=== PATIENT | male | born 1965 | race Caucasian/White ===

== ENCOUNTER → 2019-07-07 14:04 | Outpatient (CLI) | payer OTHER, SELFPAY ==
--- NOTE | ~2019-07-07 | MR_ITS ---
EXAMINATION: MR lumbar spine wo/w con EXAM DATE: 07/07/2019 16:21 INDICATION: Radiculopathy, lumbar region. Sacroiliitis. Low back pain. TECHNIQUE: Multi-sequential, multiplanar MR images of the lumbar spine were obtained without contrast . Sagittal T1, T2, T2 fat saturation images. Axial T2 weighted images. Axial T1 weighted sequence. Patient was then injected with 17 mL Multihance intravenous contrast and reimaged. Postcontrast axi al and sagittal T1-weighted fat saturation sequences were obtained. There are no prior studies for co mparison. FINDINGS: There is enhancement surrounding both facet joints at the L4-5 level, more extensive on the right side, which also extends into the right neural foramen. Inflammation could potentially be irri tating the exiting right L4 nerve root in the lateral recess, where there is also moderate to severe stenosis. Otherwise, no areas of abnormal enhancement. There are no suspicious marrow signal abnormal ities. The vertebral bodies are aligned in the AP dimension. There is mild to moderate disc disease L 4-5 and L5-S1. The conus medullaris terminates at the L1/2 level and has normal signal intensity and morphology. Paraspinal soft tissue is unremarkable. Level by level evaluation: T12-L1: Disc does not extend beyond the endplate margin. Facet arthropathy: Mild. Neural foraminal stenosis: No stenosis. Central canal stenosis: No stenosis. L1-L2: There is a mild diffuse disc bulge. Facet arthropathy: Mild. Neural foraminal stenosis: No stenosis. Central canal stenosis: No stenosis. L2-L3: There is a mild to moderate diffuse disc bulge. Facet arthropathy: Mild to moderate. Neural foraminal stenosis: Mild bilateral. Central canal stenosis: Mild. L3-L4: There is a mild diffuse disc bulge. Facet arthropathy: Mild to moderate bilateral. Neural foraminal stenosis: Mild bilateral. Central canal stenosis: Mild. L4-L5: There is a large diffuse disc bulge. Facet arthropathy: Moderate to severe . Ligamentum flavum enlargement. Neural foraminal stenosis: Moderate to severe bilateral. Central canal stenosis: Moderate. L5-S1: There is a mild to moderate diffuse disc bulge. Facet arthropathy: Mild/moderate left. Neural foraminal stenosis: Mild to moderate right. Central canal stenosis: Mild. IMPRESSION: 1. L4-5 disc bulge, moderate to severe neural foraminal stenosis, facet arthropathy with and inflamm ation extending into the right L4 neural foramina. 2. Lesser spondylosis other levels. Reviewed, dictated and finalized at location B. 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 L4-5 disc bulge, moderate to severe neural foraminal stenosis, facet arthro mercedes with and inflammation extending into the right L4 neural foramina. 2. Lesser spondylosis other levels.
[2019-07-07 15:27] LABS: Blood Urea Nitrogen 12 mg/dL (8-26); Estimated Glomerular Filt Rate > 60
== END ==
PROVIDERS: PCP Internal Medicine; Visit Provider Nurse Practitioner Adult Health
DX: M54.16 Radiculopathy, lumbar region (principal); M46.1 Sacroiliitis, not elsewhere classified; M96.1 Postlaminectomy syndrome, not elsewhere classified; M51.26 Other intervertebral disc displacement, lumbar region
CPT/HCPCS: 72158; A9577

== ENCOUNTER → 2019-12-15 14:53 | Outpatient (CLI) | payer OTHER, SELFPAY ==
--- NOTE | ~2019-12-15 | CT_ITS ---
EXAMINATION: CT lumbar spine wo con EXAM DATE: 12/15/2019 15:26 INDICATION: Bilateral leg weakness. History of laminectomies. TECHNIQUE: Spiral CT of the lumbar spine was performed without contrast. Axial, coronal and sagittal images were reviewed. The dose-length product (DLP) for this examination was 634.27 mGy-cm. The e xposure was tailored according to patient size (auto mA exposure control), and iterative reconstructi on (ASIR) was used as additional dose reduction technique. Correlation is made to lumbar spine MRI ex amination 07/07/2019. FINDINGS: The vertebral bodies are aligned in the AP dimension. There is mild to moderate disc diseas e L4-5 and L5-S1, mild disc disease at the lumbar levels above. The vertebral body heights are mainta ined. No spondylolysis. Mild bilateral sacroiliac osteoarthritis. There is a single sclerotic focus in the left ischium measuring 1.0 cm, could be bone island but diff icult to exclude osteoblastic disease. No iliac lymphadenopathy. Mild sigmoid diverticulosis. Level by level evaluation: T12-L1: Disc does not extend beyond the endplate margin. Facet arthropathy: None. Neural foraminal stenosis: No stenosis. Central canal stenosis: No stenosis. L1-L2: Disc does not extend beyond the endplate margin. Facet arthropathy: None. Neural foraminal stenosis: No stenosis. Central canal stenosis: No stenosis. L2-L3: There is a mild diffuse disc bulge. Facet arthropathy: Mild. Neural foraminal stenosis: Mild bilateral. Central canal stenosis: Mild. L3-L4: There is a mild to moderate diffuse disc bulge. Facet arthropathy: Mild. Neural foraminal stenosis: Mild bilateral. Central canal stenosis: Mild to moderate. L4-L5: There is a moderate diffuse disc bulge. Facet arthropathy: Moderate. Neural foraminal stenosis: Moderate bilateral. Central canal stenosis: Moderate. L5-S1: There is a mild diffuse disc bulge. Facet arthropathy: Mild. Neural foraminal stenosis: Mild bilateral. Central canal stenosis: Mild. IMPRESSION: 1. Solitary left ischial sclerotic focus, most likely bone island. Consider checking PSA. 2. L4-5 moderate spondylosis. 3. Lesser spondylosis at other levels. Reviewed, dictated and finalized at location A. IMPRESSION: 1. Solitary left ischial sclerotic focus, most likely bone island. Consider ch ecking PSA. 2. L4-5 moderate spondylosis. 3. Lesser spondylosis at other levels.
--- NOTE | ~2019-12-15 | MR_ITS ---
EXAMINATION: MR cervical spine wo con EXAM DATE: 12/15/2019 16:09 INDICATION: Cervical radiculopathy. TECHNIQUE: Multi-sequential, multiplanar MR images of the cervical spine were obtained without contra st. Axial T2, axial T2 MERGE sequence. Sagittal T1, T2, T2 fat saturation images also obtained. Com parison is made to prior examination from 2003. FINDINGS: There is interbody fusion at C5-6, anterior plate at C6-7 with moderate disc disease at th is level. Mild disc disease at C4-5. The vertebral bodies are aligned in the AP dimension. There are no suspicious marrow signal abnormalities. The spinal cord signal intensity and intrinsic morphology is normal. Cervicomedullary junction is normal in appearance. Level by level evaluation: C2-C3: Disc does not extend beyond the endplate margin. Uncovertebral joint arthropathy: Mild bilateral. Facet joint arthropathy: Mild. Neural foraminal stenosis: No stenosis. Central canal stenosis: No stenosis. C3-C4: Disc does not extend beyond the endplate margin. Uncovertebral joint arthropathy: Mild bilateral. Facet joint arthropathy: Mild. Neural foraminal stenosis: No stenosis. Central canal stenosis: No stenosis. C4-C5: There is a mild diffuse disc bulge. Uncovertebral joint arthropathy: Mild to moderate right, mild left. Facet joint arthropathy: Mild to moderate bilateral. Neural foraminal stenosis: Mild mild to moderate right, mild left. Central canal stenosis: Minimal. C5-C6: This level is fused. Uncovertebral joint arthropathy: None. Facet joint arthropathy: Partially fused. Neural foraminal stenosis: No stenosis. Central canal stenosis: No stenosis. C6-C7: Disc does not extend beyond the endplate margin. Uncovertebral joint arthropathy: Mild left. Facet joint arthropathy: Mild. Neural foraminal stenosis: No stenosis. Central canal stenosis: No stenosis. C7-T1: Disc does not extend beyond the endplate margin. Uncovertebral joint arthropathy: Mild bilateral. Facet joint arthropathy: Mild bilateral. Neural foraminal stenosis: No stenosis. Central canal stenosis: No stenosis. IMPRESSION: 1. Lower cervical fusion. 2. Mild spondylosis. Reviewed, dictated and finalized at location A.
== END ==
PROVIDERS: Visit Provider Neurological Surgery
DX: M54.2 Cervicalgia (principal); M54.16 Radiculopathy, lumbar region; Z98.1 Arthrodesis status; M47.22 Other spondylosis with radiculopathy, cervical region
CPT/HCPCS: 72131; 72141

== ENCOUNTER 2021-04-05 00:32 | Day surgery (SDC) | payer OTHER, SELFPAY ==
[2021-03-14 12:28] VITALS: BMI 26.4
--- NOTE | 2021-03-24 15:28 | PC.NURSE ---
SPOKE WITH PATIENT REGARDING NEW TIMES AND DATE, NO CHANGES SINCE PREVIOUS INTERVIEW 03/14/2021
[2021-04-05 10:01] VITALS: BP 137/94; PULSE 85; RESP 18; TEMP 36.2; O2SAT 100
[2021-04-05] MEDS: LACTATED RINGERS 1,000 ML 150 ML IV CONT (10:13)
--- NOTE | 2021-04-05 10:16 | WPDANESEPPF ---
Anes - Initial Pre Proc Eval Procedure: Operation Date: 04/05/21 11:45 Proposed Procedures p Screening Colonoscopy - Shay Decker MD Date/Time: 04/05/21 10:16 Surgeon: Shay Decker MD Pre Op Diagnosis: hx of colon polyps, neoplasm screening Patient Data Age: 55 Gender: M Height: 1.8 m Weight: 83.3 kg Last Vital Signs Temp 36.2 C L 04/05/21 10:01 Pulse 85 04/05/21 10:01 Resp 18 04/05/21 10:01 BP 137/94 H 04/05/21 10:01 Pulse Ox 100 04/05/21 10:01 Allergies Allergy/AdvReac Type Severity Reaction Status Date / Time No Known Allergies Allergy Verified 04/05/21 09:55 Home Medications Medication Instructions Recorded Confirmed Type ibuprofen 600 mg PO Q6H PRN 03/14/21 04/05/21 History Patient hx anesthesia problems: none Family hx anesthesia problems: none Results Review: All pre-operative results and documents have been reviewed as part of the pre-operative evaluation. [facility]LY [facility] Past Medical History Medical History (Updated 04/05/21 @ 10:20 by Rubén Macias MD) Chronic back pain Surgical History Surgical History (Updated 04/05/21 @ 10:20 by Rubén Macias MD) H/O cervical spine surgery Social History Social History Smoking status: Former smoker Tobacco type: cigarettes Alcohol intake: current Drinks per week: 5 Spiritual care concerns: No Anes - Eval Final PreProcedure Day of Procedure 04/05/21 10:16 Patient weight: normal Heart: regular rate and rhythm Lungs: clear to auscultation Airway: Mallampati scale class II Neurological: alert and oriented Last oral intake: >/= 8 hours ASA classification: II Emergent: no Anesthetic plan: proceed Anesthesia type and monitoring: general GIVS and standard monitoring Results Review: All pre-operative results and documents have been reviewed as part of the pre-operative evaluation. Informed Consent: The patient's anesthetic plan and its attendant risks and benefits were discussed with the patient/family/POA. Questions were solicited and answers provided to the satisfaction of the patient/family/POA.
--- NOTE | 2021-04-05 11:15 | PM.HPGS ---
History of Present Illness History of Present Illness Consent: Risks, benefits, and alternatives have been discussed and questions answered. Patient agrees to proceed with procedure. Chief complaint: hx of colon polyps, neoplasm screening Narrative: Rubén Napoles is a 55 year old male with colon polyp about 7 years ago. Review of Systems Constitutional: Constitutional: Denies headache(s) and Denies weakness Eyes: Eyes: Denies blurry vision ENT: Reports Normal hearing present, Denies headache(s) and Denies neck pain Cardiovascular: Cardiovascular: Denies chest pain and Denies dyspnea Respiratory: Respiratory: Denies dyspnea Gastrointestinal: Gastrointestinal: Reports no additional gastrointestinal complaints Genitourinary: Genitourinary: Denies dysuria Musculoskeletal: Musculoskeletal: Denies neck pain Integumentary/Breasts: Skin/Breast: Denies dry skin Neurologic: Reports Normal hearing present, Denies headache(s) and Denies weakness Psychiatric: Psychiatric: Denies anxiety Endocrine: Endocrine: Denies change in body appearance Hematologic/Lymphatic: Hematologic/Lymphatic: Denies easy bleeding Allergic/Immunologic: Allergic/Immunologic: Denies urticaria PMFSH Past Medical History Medical History (Updated 04/05/21 @ 11:15 by Shay Decker MD) Chronic back pain Colon polyp Surgical History Surgical History (Updated 04/05/21 @ 10:20 by Rubén Macias MD) H/O cervical spine surgery Social History Social History Smoking status: Former smoker Tobacco type: cigarettes Alcohol intake: current Drinks per week: 5 Spiritual care concerns: No Meds Home Medications and Allergies Home Medications Medication Instructions Recorded Confirmed Type ibuprofen 600 mg PO Q6H PRN 03/14/21 04/05/21 History Allergies Allergy/AdvReac Type Severity Reaction Status Date / Time No Known Allergies Allergy Verified 04/05/21 09:55 Vital Signs Vital Signs - 24 hr 04/05/21 10:01 Temperature 97.2 F L Pulse Rate 85 Respiratory Rate 18 Blood Pressure 137/94 H Pulse Oximetry 100 Exam Const: General: comfortable and no acute distress HENMT: General nose exam: Normal nares present Eyes: General: appearance normal, both eyes and all related structures Neck: Neck: no JVD Resp: Auscultation: clear to auscultation bilaterally Cardio: Rate: regular rate Rhythm: regular rhythm GI: Inspection: non-distended GI Palp: Yes Soft to palpation Skin: General skin exam: normal color Neuro: General: gait normal Speech: normal speech Extrem: General: normal to inspection Psych: Mental Status: mental status grossly normal Assessment and Plan Assessment and plan (1) Colon polyp: Code(s): K63.5 - Polyp of colon Status: Acute Assessment and Plan: colonoscopy
[2021-04-05 11:40] VITALS: BP 136/102; PULSE 80; RESP 20; O2SAT 96
--- NOTE | 2021-04-05 11:40 | SUR.OPER ---
sigmoid colon polyp not retrieved. Dr. Orozco notified.
[2021-04-05 11:50] VITALS: BP 141/97; PULSE 79; RESP 20; O2SAT 96
[2021-04-05 12:00] VITALS: BP 135/100; PULSE 75; RESP 21; O2SAT 96
== END 2021-04-05 12:19 | disposition home or self-care (01) ==
PROVIDERS: PCP Internal Medicine; Visit Provider Internal Medicine Gastroenterology
PROC: 0DJD8ZZ Inspection of Lower Intestinal Tract, Via Natural or Artificial Opening Endoscopic (ICD-10-PCS; CPT 45378; principal; 2021-04-05 11:45)
DX: Z12.11 Encounter for screening for malignant neoplasm of colon (principal); K57.30 Diverticulosis of large intestine without perforation or abscess without bleeding; K63.5 Polyp of colon; K64.8 Other hemorrhoids; Z87.891 Personal history of nicotine dependence
CPT/HCPCS: 45385; 88305; J2704; J7120

== ENCOUNTER 2022-03-14 13:26 | Outpatient (CLI) | payer OTHER, SELFPAY ==
--- NOTE | ~2022-03-14 | MR_ITS ---
EXAMINATION: MR lumbar spine wo/w con DATE: 03/14/2022 14:45 INDICATION: Left lower extremity pain and numbness and foot drop. TECHNIQUE: Magnetic resonance imaging (MRI) of the lumbar spine was performed without and with 16 mL MultiHance intravenous contrast. COMPARISON: Lumbar spine MRI 07/07/2019 FINDINGS: There is 5 degrees dextrocurvature of lumbar spine. There are changes of anterior and poste rior fusion procedures at L4-L5 and L5-S1 with interbody devices and pedicle screws. Vertebral body h eights are normal. Intervertebral disc heights are normal. The distal spinal cord signal intensity is normal. The conus medullaris is at L1. There is a 16 mm cyst in right kidney. The following disc lev els are specifically discussed: L1-L2: The disc is mildly bulging. There is mild bilateral facet joint osteoarthritis. There is mild right neural foraminal stenosis. There is no central canal stenosis. L2-L3: The disc is bulging. There is mild bilateral facet joint osteoarthritis. There is mild bilater al neural foraminal stenosis. There is mild central canal stenosis. L3-L4: The disc is bulging. There is mild bilateral facet joint osteoarthritis. There is mild bilater al neural foraminal stenosis. There is mild central canal stenosis. L4-L5: There is mild bilateral facet joint hypertrophy. There is mild bilateral neural foraminal sten osis. There is no central canal stenosis. There is posterior decompression. L5-S1: There is mild bilateral facet joint hypertrophy. There is no neural foraminal stenosis. There is no central canal stenosis. IMPRESSION: 1. Mild lumbar spondylosis. 2. Anterior and posterior fusion procedures at L4-L5 and L5-S1. Reviewed, dictated and finalized at location A.
== END 2022-03-14 13:27 | disposition home or self-care (01) ==
PROVIDERS: PCP Internal Medicine; Visit Provider Neurological Surgery
DX: M47.896 Other spondylosis, lumbar region (principal); Z98.1 Arthrodesis status
CPT/HCPCS: 72158; A9577

== ENCOUNTER 2024-03-24 12:47 | Outpatient (CLI) | payer OTHER, SELFPAY ==
--- NOTE | ~2024-03-24 | MR_ITS ---
EXAMINATION: MR knee LT wo con DATE: 03/24/2024 13:22 INDICATION: Primary osteoarthritis of the left knee. TECHNIQUE: Magnetic resonance imaging (MRI) of the left knee was performed without intravenous contra st. Sequences included coronal PD-weighted FSE, coronal PD-weighted FS FSE, sagittal T2-weighted FSE , sagittal PD-weighted FS FSE and axial PD weighted fat saturated FSE. COMPARISON: Left knee radiographs dated 03/10/2024 FINDINGS: Medial compartment: Complex tear of the body and posterior horn of the medial meniscus. There is a macerated appearance t o the meniscus at the junction of the body and posterior horn at the origin of a large para meniscal cyst which measures 3.2 cm medial collateral, 4.5 cm anteroposteriorly and 4.7 cm craniocaudally. The re is extensive deep chondral ulceration with scattered cortical irregularity and subarticular edema- like signal change along the weightbearing medial femoral condyle most prominent centrally and at the central to the anteromedial aspect of the medial tibial plateau. Lateral compartment: Lateral meniscus is normal. Mild partial-thickness chondral fissuring at the central to posterior asp ect of the lateral tibial plateau. Mild partial-thickness cartilage loss and minimal chondral surface irregularity along the lateral side of the posterior weightbearing lateral femoral condyle. Patellofemoral compartment: Chondral ulceration along the inferior aspect of the trochlear groove. Shallow partial thickness elsa dral fissuring at the central aspect of the patellar apical ridge at the central to medial aspect of the medial patellar facet. Ligaments and tendons: Anterior and posterior cruciate ligaments are normal. The fibular collateral ligament complex is norm al. There is architectural distortion of the medial collateral ligament resulting from the previous n oted large para meniscal cyst a portion which remains deep to the ligament and with a larger componen t to the cyst positioned along the superficial margin of the ligament communicating 3 small split tea r in the ligament. The extensor mechanism is normal. The visualized medial and lateral hamstring tend ons as well as the iliotibial band are normal. Fluid: Physiologic amount of fluid in the joint space. No loose osteochondral bodies identified. Osseous/other: Mild genu varus resulting in the joint space narrowing the medial compartment. No fracture or patholo gic marrow replacing process. Moderate size marginal osteophytes along the medial tibial plateau and medial femoral condyle. IMPRESSION: 1. Complex medial meniscal tear with 4.7 x 4.5 x 3.2 cm per meniscal cyst arising from a macerated ap pearing portion meniscus at the junction of the body and posterior horn. 2. Severe osteoarthritis with extensive high-grade chondral malacia the medial compartment and mild o steoarthritis with regions of moderate grade chondromalacia in the medial and patellofemoral compartm ents. 3. Small split tear at the proximal medial collateral ligament through which passes a portion of the large para meniscal cyst. Reviewed, dictated and finalized at location B. PRESIDENT IMPRESSION: 1. Complex medial meniscal tear with 4.7 x 4.5 x 3.2 cm per meniscal cyst arisi ng from a macerated appearing portion meniscus at the junction of the body and posterior horn. 2. Severe osteoarthritis with extensive high-grade chondral malacia the medial compartment and mild osteoarthritis with regions of moderate grade chondromalac ia in the medial and patellofemoral compartments. 3. Small split tear at the proximal medial collateral ligament through which pa sses a portion of the large para meniscal cyst.
== END 2024-03-24 12:48 | disposition home or self-care (01) ==
LOC: GOSHIMG 12:48
PROVIDERS: PCP Orthopaedic Surgery; Visit Provider Orthopaedic Surgery
DX: S83.412A Sprain of medial collateral ligament of left knee, initial encounter (principal); S83.232A Complex tear of medial meniscus, current injury, left knee, initial encounter; X58.XXXA Exposure to other specified factors, initial encounter; M17.12 Unilateral primary osteoarthritis, left knee; M23.032 Cystic meniscus, other medial meniscus, left knee; M94.262 Chondromalacia, left knee
CPT/HCPCS: 73721